=== PATIENT | female | born 1970 | race Caucasian/White ===

== ENCOUNTER 2024-01-04 12:30 | Day surgery (SDC) | payer BC ==
[2024-01-04] MEDS: LACTATED RINGERS 1,000 ML IV ONE (12:48)
--- NOTE | 2024-01-04 14:20 | ANESTHESIA ---
Pre-Anesthesia VS, & Labs - Diagnosis HX POLYPS - Procedure COLONOSCOPY Vital Signs: Temp Pulse Resp BP Pulse Ox O2 Flow Rate 36.6 C 76 16 129/78 100 01/04/24 12:49 01/04/24 12:49 01/04/24 12:49 01/04/24 12:49 01/04/24 12:49 Height: 5 ft 3 in Weight (kg): 54.88 kg Body Mass Index: 21.4 BMI Classification: Normal - NPO Last Fluid Intake: 1030 - Is Patient ?: No (PT STATES POST MENOPAUSAL) Home Medications and Allergies Home Medications: Ambulatory Orders Atomoxetine HCl [Strattera] 1 cap PO DAILY 01/04/24 Cholecalciferol (Vitamin D3) [Vitamin D3] 50 mcg PO DAILY 01/04/24 Escitalopram Oxalate 1 tab PO DAILY 01/04/24 [place]-3S/Dha/Epa/Fish Oil [Fish Oil 1,200 mg Softgel] 1 cap PO DAILY 01/04/24 estradioL [Estrace] 1 tab PO DAILY 01/04/24 lamoTRIgine [LaMICtal] 50 mg PO DAILY 01/04/24 Atomoxetine HCl [Strattera] 1 cap PO DAILY 01/04/24 Cholecalciferol (Vitamin D3) [Vitamin D3] 50 mcg PO DAILY 01/04/24 Escitalopram Oxalate 1 tab PO DAILY 01/04/24 [place]-3S/Dha/Epa/Fish Oil [Fish Oil 1,200 mg Softgel] 1 cap PO DAILY 01/04/24 estradioL [Estrace] 1 tab PO DAILY 01/04/24 lamoTRIgine [LaMICtal] 50 mg PO DAILY 01/04/24 Allergies/Adverse Reactions: Allergies Allergy/AdvReac Type Severity Reaction Status Date / Time Penicillins Allergy Edema Verified 01/04/24 12:59 Anes History & Medical History - Anesthetic History Anesthesia Complications: reports: No previous complications Family history of Anesthesia Complications: Denies - Medical History Cardiovascular: reports: None Pulmonary: reports: None Gastrointestinal: reports: None, Colon polyps Musculoskeletal: reports: Chronic back pain Skin: reports: None Results - EKG Results EKG Comparison: Reviewed EKG Exam General: Alert Mouth Openin Fingerbreadth Neck Mobility: Normal Mallampati classification: II Thyromental Distance: 4-6 cm Plan Anesthesia Type: Total IV Consent for Procedure(s) Verified and Reviewed: Yes Code Status: Attempt Resuscitation ASA classification: 1-Healthy patient Is this case an emergency?: No
--- NOTE | 2024-01-04 14:23 | HISTORY & PHYSICAL EXAMINATION ---
Chief Complaint - Chief Complaint Chief Complaint: here for colonoscopy History of Present Illness - History Obtained From Records Reviewed: yes History obtained from: pt Exam Limitations: none - History of Present Illness HPI Comment/Other: hx 2 adenomatous polyps 3 years ago. 3 year suveillance was recommended. no fhx colon ca. History - Past Medical History GI: reports: Colon polyps HEENT: reports: Dental implants Psych: reports: Depression, Anxiety Musculoskeletal: reports: Chronic back pain Derm: reports: None MRSA Hx?: No Meds/Allgy - Home Medications Home Medications: Ambulatory Orders Medication Instructions Recorded Confirmed Atomoxetine HCl [Strattera] 1 cap PO DAILY 01/04/24 01/04/24 Cholecalciferol (Vitamin D3) 50 mcg PO DAILY 01/04/24 01/04/24 [Vitamin D3] Escitalopram Oxalate 1 tab PO DAILY 01/04/24 01/04/24 [place]-3S/Dha/Epa/Fish Oil [Fish 1 cap PO DAILY 01/04/24 01/04/24 Oil 1,200 mg Softgel] estradioL [Estrace] 1 tab PO DAILY 01/04/24 01/04/24 lamoTRIgine [LaMICtal] 50 mg PO DAILY 01/04/24 01/04/24 - Allergies Allergies/Adverse Reactions: Allergies Allergy/AdvReac Type Severity Reaction Status Date / Time Penicillins Allergy Edema Verified 01/04/24 12:59 Review of Systems - Other Findings Other Findings: 10 pt ros as above otherwise unremarkable Exam - Vital Signs Vital Signs: Vital Signs x48h Temp Pulse Resp BP Pulse Ox 01/04/24 12:49 36.6 C 76 16 129/78 100 - Physical Exam General Appearance: positive: No acute distress, Alert Eyes Bilateral: positive: PERRL, EOMI ENT: positive: No signs of dehydration Neck: positive: No JVD, Trachea midline Respiratory: positive: No respiratory distress Cardiovascular: positive: Regular rate & rhythm Abdomen: positive: No distention Neurologic/Psychiatric: positive: Oriented x3 Conclusion/Plan - Problem List (1) Colon cancer screening Conclusion/Plan: plan colonoscopy. parq held and consent obtained
[2024-01-04] MEDS ORDERED: PROPOFOL 500 MG/50 ML 500 MG/50 ML VIAL ONE (14:38)
[2024-01-04] MEDS ORDERED: LIDOCAINE-MPF 2% 5 ML VIAL ONE (14:38)
[2024-01-04] MEDS ORDERED: ONDANSETRON 4 MG/2 ML VIAL ONE (14:45)
[2024-01-04] MEDS ORDERED: fentaNYL 100 MCG/2 ML VIAL ONE (14:46)
[2024-01-04] MEDS: LACTATED RINGERS 200 ML IV ONE (15:07)
[2024-01-04 15:33] VITALS: BP 102/56; O2SAT 99
== END 2024-01-04 12:31 | disposition home or self-care (01) ==
LOC: SDS 12:30
PROVIDERS: ATTEND Surgery
PROC: 0DBK8ZZ Excision of Ascending Colon, Via Natural or Artificial Opening Endoscopic (ICD-10-PCS; principal; 2024-01-04 14:00)
DX: Z12.11 Encounter for screening for malignant neoplasm of colon (principal); D12.2 Benign neoplasm of ascending colon
CPT/HCPCS: 45380; J7120

== ENCOUNTER 2024-02-07 08:56 | Outpatient (CLI) | payer BC ==
[2024-02-07 09:09] LABS: BASOPHILS # (AUTO) 0.1 10^3/uL (0.0-0.1); BASOPHILS % (AUTO) 1.4 %; EOSINOPHILS # (AUTO) 0.1 10^3/uL (0.0-0.7); EOSINOPHILS % (AUTO) 1.4 %; HCT - HEMATOCRIT 42.5 % (37.0-47.0); LYMPHOCYTES # (AUTO) 2.6 10^3/uL (1.5-3.5); MEAN CORPUSCULAR HEMOGLOBIN 30.1 pg (27.0-31.0); MEAN CORPUSCULAR HGB CONC 32.9 g/dL (32.0-36.0); MEAN CORPUSCULAR VOLUME 91.4 fL (81.0-99.0); MEAN PLATELET VOLUME 8.9 fL (7.9-10.8); MONOCYTES # (AUTO) 0.5 10^3/uL (0.0-1.0); NEUTROPHILS # (AUTO) 3.3 10^3/uL (1.5-6.6); PLT - PLATELET COUNT 373 10^3/uL (130-450); RED BLOOD COUNT 4.65 10^6/uL (4.20-5.40); RED CELL DISTRIBUTION WIDTH 12.6 % (12.0-15.0); WHITE BLOOD COUNT 6.6 x10^3/uL (4.8-10.8)
[2024-02-07 09:22] LABS: ALBUMIN 4.6 g/dL (3.2-5.5); ALBUMIN/GLOBULIN RATIO 1.8 (1.0-2.2); ALKALINE PHOSPHATASE 33 IU/L (42-121); ALT ALANINE AMINOTRANSFERASE 18 IU/L (10-60); AST ASPARTATE AMINOTRANSFERASE 19 IU/L (10-42); BILIRUBIN,TOTAL 0.4 mg/dL (0.2-1.0); BUN - BLOOD UREA NITROGEN 15 mg/dL (6-20); CALCIUM 9.9 mg/dL (8.5-10.3); CARBON DIOXIDE - CO2 31 mmol/L (21-32); CHLORIDE 101 mmol/L (101-111); CHOL/HDL RATIO 2.2 (<4.4); CHOLESTEROL 202 mg/dL; CREATININE 0.8 mg/dL (0.6-1.3); GFR - MDRD 75 (>89); GLUCOSE 112 mg/dL (74-104); HDL CHOLESTEROL 92 mg/dL; LDL CHOLESTEROL,CALCULATED 98 mg/dL; LDL/HDL RATIO 1.1 (<4.4); POTASSIUM 4.2 mmol/L (3.5-4.5); SODIUM 137 mmol/L (135-145); TOTAL PROTEIN 7.1 g/dL (6.4-8.9); TRIGLYCERIDES 59 mg/dL (48-352); VLDL CHOLESTEROL 12 mg/dL
== END 2024-02-07 08:57 | disposition home or self-care (01) ==
LOC: LAB 08:56
PROVIDERS: ATTEND Physician Assistant
DX: Z00.00 Encounter for general adult medical examination without abnormal findings (principal); Z51.81 Encounter for therapeutic drug level monitoring; Z13.220 Encounter for screening for lipoid disorders
CPT/HCPCS: 36415; 80053; 80061; 83721; 85025